=== PATIENT | male | born 1980 | race Caucasian/White ===

== ENCOUNTER 2019-07-15 03:05 | Emergency (ER) | payer OTHER ==
[~2019-07-15] VITALS: Ht 180.3 cm; Wt 95.3 kg
[2019-07-15 03:40] VITALS: BP 170/115
[2019-07-15] MEDS ORDERED: CHLO15MO2 PO (04:00)
[2019-07-15] MEDS ORDERED: DEXAMETHASONE 4 MG TABLET PO ONE (04:00)
--- NOTE | 2019-07-15 04:00 | PHYS DOC ---
Adult General Chief Complaint Chief Complaint: SORE THROAT HPI HPI Patient is a 38 year old [f__sex] who presents with [] Review of Systems Review of Systems Constitutional: Denies fever or chills Eyes: Denies redness or eye pain HENT: Denies nasal congestion or sore throat Respiratory: Denies cough or shortness of breath Cardiovascular: Denies chest pain or palpitations GI: Denies abdominal pain, nausea, or vomiting : Denies dysuria or hematuria Musculoskeletal: Denies back pain or joint pain Integument: Denies rash or skin lesions Neurologic: Denies headache, focal weakness or sensory changes Complete systems were reviewed and found to be within normal limits, except as documented in this note. Current Medications Current Medications Current Medications Medications (Trade) Dose Ordered Sig/Evette Start Time Stop Time Status Last Admin Dose Admin Dexamethasone (Decadron) 10 mg 1X ONCE 07/15/19 04:00 07/15/19 04:01 DC Allergies Allergies Allergies Coded Allergies Type Severity Reaction Last Updated Verified No Known Drug Allergies 07/15/19 No Physical Exam Physical Exam Constitutional: Well developed, well nourished, no acute distress, non-toxic appearance HENT: Normocephalic, atraumatic, oropharynx moist Eyes: PERRL, EOMI, conjunctiva normal, no discharge Neck: Normal range of motion, no tenderness, supple Cardiovascular: Heart rate normal, regular rhythm Lungs & Thorax: Bilateral breath sounds clear to auscultation, no wheezing Abdomen: Soft, no tenderness Skin: Warm, dry, no erythema, no rash Back: No tenderness, no CVA tenderness Extremities: No tenderness, ROM intact, no edema Neurologic: Alert and oriented X 3, normal motor function, normal sensory function, no focal deficits noted Psychologic: Affect normal, judgement normal, mood normal Current Patient Data Vital Signs Vital Signs Date Time Temp Pulse Resp B/P (MAP) Pulse Ox O2 Delivery O2 Flow Rate FiO2 07/15/19 03:40 97.9 39 18 170/115 (133) 96 Room Air 97.9 EKG EKG [] Radiology/Procedures Radiology/Procedures [] Course & Med Decision Making Course & Med Decision Making Pertinent Labs and Imaging studies reviewed. (See chart for details) Patient stable for discharge with outpatient follow-up with PCP. Discussed findings and plan with patient and family, who acknowledge understanding and agreement. Dragon Disclaimer Dragon Disclaimer This electronic medical record was generated, in whole or in part, using a voice recognition dictation system. Departure Departure Impression: Primary Impression: Chemical exposure Additional Impression: Gingivitis Disposition: 01 HOME, SELF-CARE Condition: STABLE Patient Instructions: Gingivitis, [id number], Smoking Cessation, Tips For Success, Sore Throat, [id number] Additional Instructions: Discontinue smoking at least for 48 hours. Increased cold and soft foods (ice cream, cold applesauce, etc). May use over the counter Tylenol and Ibuprofen for pain. Avoid hot or spicy foods. Please follow with a dentist. Dental clinic list was also provided. Scripts Chlorhexidine Gluconate (PERIDEX) 15 Ml Mouthwash 15 ML PO BID, #[id number] ML Prov: CORAL GRIFFIN DO 07/15/19 Problem Qualifiers CORAL GRIFFIN DO Jul 15, 2019 04:00
== END 2019-07-15 04:10 | disposition home or self-care (01) ==
LOC: ER 03:05
DX: K05.10 Chronic gingivitis, plaque induced (principal); Z77.098 Contact with and (suspected) exposure to other hazardous, chiefly nonmedicinal, chemicals
CPT/HCPCS: 99284